=== PATIENT | female | born 1990 | race Caucasian/White ===

== ENCOUNTER 2020-02-05 11:56 | Emergency (ER) | payer BC ==
[~2020-02-05] VITALS: Ht 160 cm; Wt 54.4 kg
[2020-02-05 13:01] VITALS: BP_SYST 131
--- NOTE | 2020-02-05 13:06 | NUR ---
sent to [facility]
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
--- NOTE | 2020-02-05 16:50 | NUR ---
Dr Eldridge L assessing patient in the triage room
[2020-02-05] MEDS ORDERED: IBUPROFEN 600 MG TABLET PO ONE (17:15)
[2020-02-05] MEDS ORDERED: ONDANSETRON 4 MG ODT TAB PO ONE (17:15)
--- NOTE | 2020-02-05 17:21 | NUR ---
Patient given written and verbal discharge instructions and verbalizes understanding. ER MD discussed with patient the results and treatment provided. Patient in stable condition. ID arm band removed. Rx of Ibuprofen and Zofran given. Patient educated on pain management and to follow up with PMD. Pain Scale 2/10. Opportunity for questions provided and answered. Medication side effect fact sheet provided.
[2020-02-05 17:22] VITALS: BP_SYST 131
== END 2020-02-05 17:21 | disposition home or self-care (01) ==
LOC: SED 11:56
DX: S06.0X0A Concussion without loss of consciousness, initial encounter (principal); W22.8XXA Striking against or struck by other objects, initial encounter; Y93.89 Activity, other specified; Y92.89 Other specified places as the place of occurrence of the external cause; Y99.8 Other external cause status
CPT/HCPCS: 81025; 99283; Q0162